=== PATIENT | female | born 1995 | race Caucasian/White ===

== ENCOUNTER 2021-12-04 15:30 | Emergency (ER) | payer OTHER ==
[~2021-12-04] VITALS: Ht 152.4 cm; Wt 52.6 kg
[2021-12-04 15:32] VITALS: BP 100/63
[2021-12-04] MEDS ORDERED: IBUP-2213 PO (16:46)
== END 2021-12-04 16:50 | disposition home or self-care (01) ==
LOC: MED 15:30
DX: S93.504A Unspecified sprain of right lesser toe(s), initial encounter (principal); Z79.899 Other long term (current) drug therapy; X58.XXXA Exposure to other specified factors, initial encounter; Y93.89 Activity, other specified; Y92.89 Other specified places as the place of occurrence of the external cause; Y99.8 Other external cause status
CPT/HCPCS: 73660; 99283